=== PATIENT | female | born 1985 | race Caucasian/White ===

== ENCOUNTER 2017-03-30 12:51 | Observation (INO) | payer OTHER ==
[~2017-03-30] VITALS: Ht 172.7 cm; Wt 123.0 kg
[~2017-03-30 12:51] MED LIST: IBUPROFEN800 M1 PO; MULTIVITAMINS1 EAC6; SURFAK240 M2 PO; TYLENOL WITH C1 EACH PO
[2017-03-30 13:10] LABS: URINE BILIRUBIN NEGATIVE (NEG); URINE BLOOD NEGATIVE (NEG); URINE GLUCOSE (UA) NEGATIVE (NEG); URINE KETONE NEGATIVE (NEG); URINE LEUKOCYTE ESTERASE POSITIVE (NEG); URINE NITRITE NEGATIVE (NEG); URINE PROTEIN NEGATIVE (NEG)
[2017-03-30 13:11] LABS: URINE APPEARANCE CLEAR; URINE COLOR YELLOW
[2017-03-30 13:16] LABS: URINE BACTERIA 2+; URINE EPITHELIAL CELLS 0-2 /[HPF] (0-10); URINE RBC RARE /[HPF] (0-5)
[2017-03-30] MEDS ORDERED: LABETALOL HCL100 M1 PO (13:31)
[2017-03-30 13:34] LABS: BASO % 0.1 % (0-2); EOS % 0.7 % (0-7); EOSINOPHIL ABSOLUTE COUNT 0.1 tho/cmm (0.0-0.7); HCT-HEMATOCRIT 36.4 % (34.0-49.0); HGB-HEMOGLOBIN 12.3 gm/dl (12.0-15.5); IMMATURE GRANULOCYTES ABSOLUTE 0.02 tho/cmm (0-0.03); IMMATURE GRANULOCYTES PERCENT 0.2 % (0-0.3); LYMPH % 20.2 % (20-45); LYMPH ABSOLUTE COUNT 1.9 tho/cmm (0.8-4.5); MCH (MEAN CORPUSCULAR HGB) 28.9 pg (28.0-32.0); MCHC MEAN CORPUSCULAR HGB CONC 33.8 % (32.0-36.0); MCV (MEAN CELL VOLUME) 85.4 fl (82.0-96.0); MEAN PLATELET VOLUME 10.7 cmc (9.4-12.4); MONO % 4.8 % (0-12); MONOCYTE ABSOLUTE COUNT 0.5 tho/cmm (0.0-1.2); NEUTROPHIL ABSOLUTE COUNT 6.9 tho/cmm (1.6-8.0); NEUTROPHIL-AUTOMATED 6.9 tho/cmm (1.6-8.0); PLATELET COUNT 287 tho/cmm (150-450); RED BLOOD COUNT 4.26 mil/cmm (4.00-5.20); RED CELL DISTRIBUTION WIDTH 13.6 % (12.4-16.4); WHITE BLOOD COUNT 9.4 tho/cmm (4.0-10.0)
[2017-03-30 13:50] LABS: ALB/GLOB RATIO 0.5 (0.8-2.0); ALBUMIN 2.5 g/dl (3.5-5.0); ALKALINE PHOSPHATASE 156 U/L (33-138); ALT/SGPT 18 U/L (12-78); ANION GAP 14 mmol/L (0-20); AST/SGOT 16 U/L (10-40); BILIRUBIN,TOTAL 0.2 mg/dl (0-1.5); BLOOD UREA NITROGEN 8 mg/dl (6-24); CALCIUM 8.8 mg/dl (8.5-10.5); CARBON DIOXIDE-VENOUS 22 mmol/L (22-32); CHLORIDE 106 mmol/l (96-110); CREATININE 0.55 mg/dl (0.50-1.10); GLUCOSE 87 mg/dL (70-110); POTASSIUM 3.7 mmol/L (3.7-5.1); SODIUM 138 mmol/L (135-145); eGFR VALUE FOR BLACK >90 mL/Min
== END 2017-03-30 20:38 ==
LOC: LDR 12:51
PROVIDERS: ADMIT Obstetrics & Gynecology
DX: O99.89 Other specified diseases and conditions complicating pregnancy, childbirth and the puerperium (principal); R03.0 Elevated blood-pressure reading, without diagnosis of hypertension; R51 Headache; Z3A.35 35 weeks gestation of pregnancy; Z79.899 Other long term (current) drug therapy; Z91.013 Allergy to seafood; Z91.018 Allergy to other foods
CPT/HCPCS: J2270; J7030